=== PATIENT | male | born 1995 | race Caucasian/White ===

== ENCOUNTER → 2020-10-07 11:39 | Outpatient (CLI) | payer OTHER, SELFPAY ==
--- NOTE | 2020-10-07 11:41 | DI.RAD.S_ITS ---
PROCEDURE: XR FINGER LT MIN 2V INDICATIONS: laceration, r/o foreign bodies TECHNIQUE: AP hand, 2 views of the 2nd finger(s) acquired. COMPARISON: None. FINDINGS: Bones: No fractures or dislocations. No suspicious bony lesions. Soft tissues: No suspicious soft tissue calcifications. No soft tissue gas. No radiopaque foreign body. IMPRESSION: No evidence acute bony abnormality of the left 2nd finger Dictated by: Steve Flanagan M.D. on 10/07/2020 at 13:42 Approved by: Steve Flanagan M.D. on 10/07/2020 at 13:42
== END ==
PROVIDERS: Referring Provider Nurse Practitioner; Visit Provider Nurse Practitioner
DX: S61.211A Laceration without foreign body of left index finger without damage to nail, initial encounter (principal); X58.XXXA Exposure to other specified factors, initial encounter
CPT/HCPCS: 73140